=== PATIENT | female | born 1985 | race Caucasian/White ===

== ENCOUNTER 2018-10-09 19:11 | Observation (INO) | payer MEDICAID ==
[~2018-10-09] VITALS: Ht 154.9 cm; Wt 67.6 kg
[2018-10-09] MEDS ORDERED: PNV1TABL50 MT (19:56)
[2018-10-09 20:13] LABS: CLARITY URINE CLEAR (CLEAR); COLOR URINE YELLOW (YELLOW); KETONES URINE NEGATIVE (NEGATIVE); LEUKOCYTE ESTERASE URINE NEGATIVE (NEGATIVE); NITRITE URINE NEGATIVE (NEGATIVE); OCCULT BLOOD URINE TRACE (NEGATIVE); PROTEIN URINE NEGATIVE (NEGATIVE); UROBILINOGEN URINE 0.2 E.U./dL (0.2-1.0)
[2018-10-09] MEDS ORDERED: DEXT 5%/LACTATED RINGERS 1,000 ML IV SCH (20:30)
[2018-10-09] MEDS ORDERED: TERBUTALINE SULFATE 1MG/ML VIAL SUBCUT NR (22:26)
[2018-10-09] MEDS ORDERED: ACETAMINOPHEN 500MG TABLET PO NR (22:26)
[2018-10-10] MEDS ORDERED: CITRIC ACID/SODIUM CITRATE SOLN 30ML UDC PO NR
== END 2018-10-10 00:30 | disposition home or self-care (01) ==
LOC: 8 EST LDRP 19:11
PROVIDERS: ADMIT Obstetrics & Gynecology; ATTEND Obstetrics & Gynecology
DX: O62.9 Abnormality of forces of labor, unspecified (principal); Z3A.27 27 weeks gestation of pregnancy
CPT/HCPCS: 76805; 81003; 82731; 96372; 99281; G0378; J3105; 59412; 96360; 96361

== ENCOUNTER 2018-12-26 21:18 | Observation (INO) | payer MEDICAID ==
[~2018-12-26] VITALS: Ht 157.5 cm; Wt 69.4 kg
[~2018-12-26 21:18] MED LIST: PNV1TABL50 MT
[2018-12-26] MEDS ORDERED: FOLI0.4T2 MT (21:53)
== END 2018-12-27 00:15 | disposition home or self-care (01) ==
LOC: 8 EST LDRP 21:18
PROVIDERS: ADMIT Obstetrics & Gynecology; ATTEND Obstetrics & Gynecology
DX: O26.899 Other specified pregnancy related conditions, unspecified trimester (principal); R10.9 Unspecified abdominal pain; Z3A.00 Weeks of gestation of pregnancy not specified
CPT/HCPCS: 99281; G0378

== ENCOUNTER 2019-01-06 09:34 | Inpatient (IN) | payer MEDICAID ==
[~2019-01-06] VITALS: Ht 157.5 cm; Wt 69.9 kg
[~2019-01-06 09:34] MED LIST changes: +FOLI0.4T2 MT
[2019-01-06] MEDS ORDERED: ROPIVACAINE HCL/PF 0.2% (2MG/ML) EPI 200ML EPI SCH (11:15)
[2019-01-06] MEDS ORDERED: LACTATED RINGERS 1,000 ML IV SCH (11:43)
[2019-01-06] MEDS ORDERED: DEXT 5%/LR + PITOCIN 20UNITS/L 1,000 ML IV SCH ×2 (11:43→17:02)
[2019-01-06] MEDS ORDERED: METHYLERGONOVINE MALEATE 0.2 MG/ML IM PRN (11:45)
[2019-01-06] MEDS ORDERED: MISOPROSTOL 100MCG TABLET VG SCH (11:45)
[2019-01-06] MEDS ORDERED: LIDOCAINE HCL 1% 20ML VIAL (Pyxis) INJ INFIL SCH (11:45)
[2019-01-06] MEDS ORDERED: NALOXONE HCL 0.4 MG/ML 1ML VIAL IM PRN (11:45)
[2019-01-06] MEDS ORDERED: CARBOPROST TROMETHAMINE 250 MCG/ML AMPUL IM PRN (11:45)
[2019-01-06] MEDS ORDERED: BUTORPHANOL TARTRATE 2 MG/ML VIAL IV PRN (11:45)
[2019-01-06] MEDS: LACTATED RINGERS 1,000 ML IV SCH ×3 (12:15→16:01)
[2019-01-06 13:47] LABS: BASOPHILS % 0.3 % (0.0-2.0); EOSINOPHILS % 0.2 % (0.0-5.0); HEMATOCRIT. 37.5 % (36.0-48.0); HEMOGLOBIN. 12.9 g/dL (12.0-16.0); LYMPHOCYTES % 12.7 % (20.0-50.0); MEAN CORPUSCULAR HEMOGLOBIN 33.7 pg (28.0-32.0); MEAN CORPUSCULAR VOLUME 98.3 fL (81.0-99.0); MEAN PLATELET VOLUME 9.1 fl (7.4-10.4); MONOCYTES % 5.7 % (2.0-8.0); NEUTROPHILS % 81.1 % (40.0-76.0); PLATELET 162 x1000/uL (130-400); RED BLOOD CELL COUNT 3.81 mill/uL (4.2-5.4); RED CELL DISTRIBUTION WIDTH 13.6 % (11.6-14.6)
[2019-01-06 13:56] LABS: PARTIAL THROMBOPLASTIN TIME 26.8 sec (23.4-31.0); PROTHROMBIN TIME 9.9 sec (9.6-11.0)
[2019-01-06 14:56] LABS: CLARITY URINE CLEAR (CLEAR); COLOR URINE YELLOW (YELLOW); KETONES URINE NEGATIVE (NEGATIVE); LEUKOCYTE ESTERASE URINE NEGATIVE (NEGATIVE); NITRITE URINE NEGATIVE (NEGATIVE); OCCULT BLOOD URINE NEGATIVE (NEGATIVE); PROTEIN URINE NEGATIVE (NEGATIVE); SPECIFIC GRAVITY URINE 1.004 (1.005-1.030); UROBILINOGEN URINE 0.2 E.U./dL (0.2-1.0)
[2019-01-06 15:02] LABS: *AMPHETAMINES SCREEN URINE NEGATIVE (NEGATIVE); *BARBITURATES SCREEN URINE NEGATIVE (NEGATIVE)
[2019-01-06 15:03] LABS: *BENZODIAZEPINES SCREEN URINE NEGATIVE (NEGATIVE); *COCAINE SCREEN URINE NEGATIVE (NEGATIVE); CANNABINOID URINE SCREEN NEGATIVE (NEGATIVE); METHADONE URINE SCREEN NEGATIVE (NEGATIVE); OPIATES URINE SCREEN NEGATIVE (NEGATIVE); PHENCYCLIDINE URINE SCREEN NEGATIVE (NEGATIVE)
[2019-01-06 15:51] LABS: HEPATITIS B SURFACE ANTIGEN NEGATIVE
[2019-01-06] MEDS ORDERED: IBUPROFEN 400MG TABLET PO PRN (17:15)
[2019-01-06] MEDS ORDERED: RHO(D) IMMUNE GLOBULIN 300 MCG/SYR IM PRN (17:15)
[2019-01-06] MEDS ORDERED: ACETAMINOPHEN WITH CODEINE 300/30MG TABLET PO PRN (17:15)
[2019-01-06 18:30] VITALS: BP 115/62
[2019-01-06 19:15] VITALS: BP 117/71
[2019-01-06 19:45] VITALS: BP 109/60
[2019-01-06] MEDS: IBUPROFEN 800MG TABLET PO PRN (19:51)
[2019-01-07] MEDS ORDERED: DIPHENHYDRAMINE 25MG CAPSULE PO NR (01:15)
[2019-01-07 04:50] VITALS: BP 110/60
[2019-01-07] MEDS: IBUPROFEN 800MG TABLET PO PRN ×3 (04:58→21:59)
[2019-01-07 07:31] VITALS: BP 103/53
[2019-01-07 07:46] LABS: BASOPHILS % 0.1 % (0.0-2.0); EOSINOPHILS % 0.1 % (0.0-5.0); HEMATOCRIT. 35.3 % (36.0-48.0); HEMOGLOBIN. 11.8 g/dL (12.0-16.0); LYMPHOCYTES % 15.4 % (20.0-50.0); MEAN CORPUSCULAR HEMOGLOBIN 32.8 pg (28.0-32.0); MEAN CORPUSCULAR VOLUME 97.8 fL (81.0-99.0); MEAN PLATELET VOLUME 9.2 fl (7.4-10.4); MONOCYTES % 7.8 % (2.0-8.0); NEUTROPHILS % 76.6 % (40.0-76.0); PLATELET 159 x1000/uL (130-400); RED BLOOD CELL COUNT 3.61 mill/uL (4.2-5.4); RED CELL DISTRIBUTION WIDTH 13.9 % (11.6-14.6)
[2019-01-07] MEDS ORDERED: CITRIC ACID/SODIUM CITRATE SOLN 30ML UDC PO NR (10:45)
[2019-01-07] MEDS ORDERED: BUPIVACAINE HCL/DEXTROSE/PF 0.75% 2ML AMP INJ ONE (11:13)
[2019-01-07] MEDS ORDERED: FENTANYL CITRATE/PF 50MCG/ML 2ML VIAL ONE (11:13)
[2019-01-07] MEDS ORDERED: HYDROMORPHONE HCL/PF 2MG/ML CPJ IV PRN (11:45)
[2019-01-07] MEDS ORDERED: LABETALOL 5MG/ML SYR 20 MG/4 ML SYRINGE IV PRN (11:45)
[2019-01-07] MEDS ORDERED: MEPERIDINE HCL/PF 25MG/ML CPJ IV PRN (11:45)
[2019-01-07] MEDS ORDERED: ONDANSETRON HCL 4MG/2ML INJ IV PRN (11:45)
[2019-01-07 16:12] VITALS: BP 108/50
[2019-01-07 19:20] VITALS: BP 105/63
[2019-01-07 22:00] VITALS: BP 103/62
[2019-01-08 00:45] VITALS: BP 98/58
[2019-01-08 07:41] VITALS: BP 116/75
[2019-01-08] MEDS: IBUPROFEN 800MG TABLET PO PRN (08:45)
== END 2019-01-08 12:00 | disposition home or self-care (01) | DRG 541 ==
LOC: 8 EST LDRP 09:34 → OBSVTOIN 09:34 → 8EST 18:40
PROVIDERS: ADMIT Obstetrics & Gynecology; ATTEND Obstetrics & Gynecology
PROC: 10E0XZZ Delivery of Products of Conception, External Approach (ICD-10-PCS; 2019-01-06)
PROC: 3E0R3BZ Introduction of Anesthetic Agent into Spinal Canal, Percutaneous Approach (ICD-10-PCS; 2019-01-06)
PROC: 00HU33Z Insertion of Infusion Device into Spinal Canal, Percutaneous Approach (ICD-10-PCS; 2019-01-06)
PROC: 0UB70ZZ Excision of Bilateral Fallopian Tubes, Open Approach (ICD-10-PCS; principal; 2019-01-07)
DX: O80 Encounter for full-term uncomplicated delivery (principal); Z30.2 Encounter for sterilization; Z37.0 Single live birth; Z3A.39 39 weeks gestation of pregnancy; Z88.0 Allergy status to penicillin; Z88.1 Allergy status to other antibiotic agents
CPT/HCPCS: 36415; 80305; 86592; 86703; 86762; 86850; 86900; 87340; 88302; 99281; J0595; J2590; J2795; J3010; J3490; J7120

== ENCOUNTER 2019-09-11 23:41 | Emergency (ER) | payer MEDICAID | END 2019-09-12 | disposition left against medical advice (07) | LOC: ER 23:41 | DX: Z53.21 Procedure and treatment not carried out due to patient leaving prior to being seen by health care provider (principal) ==